=== PATIENT | male | born 1965 | race Caucasian/White ===

== ENCOUNTER 2016-11-05 22:23 | Inpatient (IN) | payer OTHER ==
--- NOTE | ~2016-11-05 | DS ---
Unit #: [id number] #: [id number] Patient: SHAHRAM LINDSEY [id number] [facility] [address] [place] [address] [id number] I MR#: [id number] NAME: SHAHRAM LINDSEY ROOM: [facility] Age: 51 Sex: M Admission Date: 11/05/2016 : 1965 Discharge Date: 11/08/2016 Attending Physician: Nam Gutierrez M.D. Primary Care Physician: Primary Care Physician No DISCHARGE SUMMARY REASON FOR ADMISSION Mr. Lindsey is a 51-year-old man who reported increasing stress at home leading to suicide attempt by wrist lacerations. He was recently seen at the [facility] and transferred to [facility]. DIAGNOSTIC STUDIES LABORATORY RESULTS: Please see hospital chart. HOSPITAL COURSE Mr. Estes was admitted and placed on suicide precautions. Citalopram 20 mg daily was initiated for treatment of depression. The patient tolerated this medication well and participated appropriately in unit groups and activities. He also participated with his family in discharge planning and was able to contract for safety on the date of discharge with a brighter affect, good mood, and no further suicidal ideation, intent, or plan. DISCHARGE DIAGNOSES AXIS I: Major depression, recurrent. AXIS II: No diagnosis. AXIS III: Self-inflicted lacerations. AXIS IV: AXIS V: DISCHARGE INSTRUCTIONS Follow up with [facility] in [place], [place]. DISCHARGE MEDICATIONS Citalopram 20 mg daily for depression. CONDITION AT DISCHARGE Improved. PROGNOSIS Fair to good. DIET AND ACTIVITY Per primary care doctor. Dictated by... Nam Gutierrez M.D. Unit #: [id number] #: [id number] Patient: SHAHRAM LINDSEY MR/modl TD: 12/19/2016 00:15 JOB #: [id number] DISCHARGE SUMMARY Page 1 of 1 X Nam Gutierrez MD X DISCHARGE SUMMARY
--- NOTE | ~2016-11-05 | HP ---
Unit #: [id number] #: [id number] Patient: POOL MARTELL [id number] [place] [address] [id number] MR#: [id number] NAME: POOL MARTELL ROOM: P258 Age: 51 Sex: M Admission Date: 11/05/2016 : 1965 Attending Physician: Nam Gutierrez M.D. Admitting Physician: Nam Gutierrez M.D. Primary Care Physician: Primary Care Physician No HISTORY AND PHYSICAL HISTORY OF PRESENT ILLNESS Pool is a 51 year old admitted to [address] [place] [address] with depression and verbalizing wanting to hurt himself. PAST MEDICAL HISTORY Hyperlipidemia. PAST SURGICAL HISTORY Nothing reported ALLERGIES No known drug allergies. SOCIAL HISTORY Smokes one pack per day. Denies alcohol and illicit drug use. FAMILY HISTORY Medically noncontributory. REVIEW OF SYSTEMS CONSTITUTIONAL: No fever or chills. HEENT: Denies any sore throat, ear pain or runny nose. CARDIOVASCULAR: Denies chest pain, irregular heart rhythm or palpitations. CHEST: Denies shortness of breath or cough. No hemoptysis. GASTROINTESTINAL: Denies nausea, vomiting, diarrhea or chronic constipation. ENDOCRINE: Denies history of increased thirst or urination. No recent significant weight loss or gain. GENITOURINARY: Denies dysuria, frequency, or hematuria. SKIN: Denies any rashes. HEMATOLOGIC: Denies history of increased bleeding or bruising. MUSCULOSKELETAL: Denies any hot, swollen joints. No generalized muscle pain. NEUROLOGIC: Denies problems with vision or speech. No frequent, severe headaches. No numbness, tingling or weakness in any extremities. Denies loss of bladder or bowel control. CURRENT MEDICATIONS 1. Celexa 20 mg q day 2. Desyrel 50 mg q.h.s. p.r.n. 3. Milk of Magnesia p.r.n. Unit #: [id number] #: [id number] Patient: POOL MARTELL 4. Maalox p.r.n. 5. Tylenol p.r.n. 6. Nicotine patch 14 mg q day PHYSICAL EXAMINATION GENERAL: Alert, well-nourished, in no apparent distress. VITAL SIGNS: Blood pressure 144/80, heart rate 60, respirations 16, temperature 98.6. WEIGHT: 223 pounds. HEIGHT: 6'0". SKIN: Warm and dry without rash or lesion. HEENT: Normocephalic. TMs not viewed. Oral and nasal passages clear. Conjunctivae clear. Pupils equal, round and reactive to light and accommodation. Extraocular movements intact. NECK: Supple without lymphadenopathy or thyromegaly. HEART: Regular rate and rhythm without murmur. LUNGS: Clear. ABDOMEN: Soft, nontender. : Not done. EXTREMITIES: No evidence of cyanosis, clubbing or edema. Moves all extremities without focal deficit. NEUROLOGICAL: Grossly within normal limits. Cranial Nerves: II: Visual hdez are intact. III, IV AND : Extraocular movements are intact. Pupils are equal, round and reactive to light. V: Facial sensation is grossly normal. VII: Facial movements and expression are normal. VIII: Auditory acuity grossly intact. IX, X: Uvula is midline. Phonation is normal. XI: Patient shrugs shoulders and turns head normally. XII: Tongue protrudes in the midline. Sensory and Motor Function: Sensory and motor sensation is grossly normal. Motor: moves all extremities well. Coordination: Gait is normal. Deep Tendon Reflexes: Intact. IMPRESSION Psychiatric admission RECOMMENDATIONS PSYCHIATRIC: Per psychiatrist. MEDICAL: I see no contraindications to participating in facility's activities. MEDICAL PROGNOSIS Good. MEDICAL CONDITION Stable. Dictated by... Magaly Sanchez P.A.-C. for Ashley Ashton/alli TD: 11/06/2016 22:19 Unit #: [id number] #: [id number] Patient: POOL MARTELL JOB #: [id number] HISTORY AND PHYSICAL Page 1 of 1 X Magaly Sanchez HISTORY AND PHYSICAL
--- NOTE | ~2016-11-05 | PA ---
Unit #: [id number] #: [id number] Patient: SHAHRAM MARTELL [id number] [place] [address] [id number] I MR#: [id number] NAME: SHAHRAM MARTELL ROOM: P254 Age: 51 Sex: M Admission Date: 11/05/2016 : 1965 Date of Assessment: 11/06/2016 Attending Physician: Nam Gutierrez M.D. Admitting Physician: Nam Gutierrez M.D. Primary Care Physician: Primary Care Physician No PSYCHIATRIC ASSESSMENT DATE OF SERVICE 11/06/2016. INFORMANTS The patient, reliable; OLOP, reliable. CHIEF COMPLAINT Suicide attempt. HISTORY OF PRESENT ILLNESS Mr. Estes is a 51-year-old man, who reported that he has been increasingly having conflict with his and 2 adult children and had made a suicide attempt by cutting his wrist. He was initially assessed at the [facility] in [place], [place] and after he was unable to contract for safety there. He was transferred to [facility]. FAMILY PSYCHIATRIC HISTORY No previous inpatient or outpatient psychiatric treatment per patient. He has no current psychiatric plan. FAMILY PSYCHIATRIC HISTORY None reported. SOCIAL HISTORY The patient denies any history of childhood abuse or neglect. He is , but lives with his ex- and 2 adult children, which is causing significant conflict within the family. 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 He has ongoing financial difficulties. PAST MEDICAL HISTORY No chronic medical problems. MEDICATIONS None currently. ALLERGIES No known medication allergies. SUBSTANCE USE HISTORY The patient is a 2 pack-a-day smoker, but has no history of chemical dependence. Unit #: [id number] #: [id number] Patient: SHAHRAM MARTELL MENTAL STATUS EXAMINATION Mr. Estes presented as a mildly disheveled man, who appeared his stated age. He was cooperative with the examination. His speech was spontaneous and easily understood. Musculoskeletal examination was calm. His mood was depressed with a congruent affect. He was alert and fully oriented. His memory and concentration were fair to good. His thought processes were goal directed with no active psychosis. He continued to report suicidal ideation and could not contract for safety outside of the hospital. His insight and judgment were fair. His fund of knowledge and abstraction appeared intact. ASSETS AND LIABILITIES The patient has supportive family and knows local resources. Liabilities include lack of current treatment plan and ongoing stress in the household. ADMITTING DIAGNOSES AXIS I: Major depressive disorder, F33.2. AXIS II: No diagnosis. AXIS III: Self-inflicted lacerations. AXIS IV: AXIS V: PSYCHIATRIC PLAN The patient was admitted and placed on suicide precautions. We will initiate Celexa 20 mg daily for depression and he will enroll in psychotherapy groups and activities. TREATMENT GOALS Resolution of SI, improvement in insight, and improvement in coping skills. DISCHARGE PLANNING Follow up with community mental health resources in [place], [place]. ESTIMATED LENGTH OF STAY 5 days. Dictated by... Nam Gutierrez M.D. FEDERICA/cassandra TD: 12/19/2016 01:08 JOB #: [id number] PSYCHIATRIC ASSESSMENT Page 1 of 1 X Nam Gutierrez MD X PSYCHIATRIC ASSESSMENT
== END 2016-11-08 13:15 | disposition home or self-care (01) | DRG 885 ==
LOC: P2L 22:23
DX: F33.2 Major depressive disorder, recurrent severe without psychotic features (principal); R45.851 Suicidal ideations; F17.210 Nicotine dependence, cigarettes, uncomplicated; T14.8 Other injury of unspecified body region; Y33.XXXA Other specified events, undetermined intent, initial encounter